=== PATIENT | male | born 1980 | race American Indian/Alaskan Native ===

== ENCOUNTER 2017-07-14 12:32 | Day surgery (SDC) | payer OTHER ==
[2017-07-14] MEDS ORDERED: NACL 0.9% 1000 ML 1,000 ML IV SCH (14:00)
--- NOTE | 2017-07-14 16:38 | Anesthesia Consultation ---
Anesthesia Consult and Med Hx Date of service: 07/14/17 - Airway Anesthetic Teeth Evaluation: Good ROM Head & Neck: Adequate Mental/Hyoid Distance: Adequate Mallampati Class: Class II Intubation Access Assessment: Good - Pulmonary Exam CTA: Yes - Cardiac Exam Cardiac Exam: No Murmur - Pre-Operative Health Status ASA Pre-Surgery Classification: ASA2 Proposed Anesthetic Plan: MAC - Additional Comments Anesthesia Medical History Comments: Crohns disease
--- NOTE | 2017-07-14 16:39 | Anesthesia Day of Surgery ---
Anesthesia Day of Surgery - Day of Surgery Patient Examined: Yes Patient H&P Reviewed: Yes Patient is NPO: Yes
[2017-07-14] MEDS ORDERED: DIPRIVAN 10 MG/ML IV ONE ×2 (17:14)
[2017-07-14 18:14] VITALS: BP 114/71
--- NOTE | 2017-07-14 20:54 | Operative Report ---
Operative Report Operative Report: Date of procedure: 07/14/2017 Procedure: Colonoscopy with Biopsies. Attending physician: Jay Szymanski MD Escapement Maker: Jay Szymanski MD Indication: Patient is a 37 year-old male who presents for colonoscopy. He has a history of crohns disease and abdominal pain. A colonoscopy serves to evaluate patients symptoms. Consent: Informed consent was obtained after advising the patient regarding nature of this procedure, its indications, potential benefits as well as possible complications including but not limited to bleeding, perforation and adverse reaction to medication, infection as well as other cardiopulmonary complications. An informed written and verbal consent was then obtained after due opportunity was provided for questions and answers. Monitoring: Patient was monitored continuously with pulse oximetry and electrocardiographic recordings as well as blood pressure recordings. Vital signs remained stable throughout this procedure with no untoward events. Preoperative assessment: Patient was assessed immediately prior to this procedure for capacity to tolerate monitored anesthesia care and moderate sedation as well as general anesthesia. Patient's ASA classification is 1, Mallampati class is 2, Hyomental distance is 3. Instrument: [employer] videocolonoscope. [employer] video endoscope. Medications: Propofol given intravenously in divided doses. For details please refer to anesthesia records. Description of procedure: Patient was placed in the left lateral decubitus position after achieving sedation, a digital rectal examination was performed following which the colonoscope was introduced into the anal verge and advanced to the cecum / ileocolonic anastomosis. The colonoscope was subsequently withdrawn with careful inspection of all mucosal surfaces. Patient tolerated this procedure well and was subsequently taken to the recovery room. The following findings were noted. Findings: The entire colon appeared relatively normal. However up on entering into the terminal ileum, there was diffuse ulceration with severe changes. The examined segments the terminal ileum appeared very highly friable hyperemic and with multiple patchy areas of ulceration. It had the typical appearance of severe Crohns ileitis. Several biopsies were obtained from this area for histopathology. After obtaining biopsies from this area, the colonoscope was then withdrawn. The ascending colon appeared normal the transverse colon appeared normal the descending colon appeared normal the sigmoid colon appeared normal however biopsies were obtained from the sigmoid colon to rule out microscopic disease. The rectum appeared normal. On the retroflex view at the anal verge, patient had internal hemorrhoids. Impression: Severe ileitis involving the examined segments of the terminal ileum. Internal hemorrhoids Plan: Follow pathology report. Patient appears to have predominantly small bowel Crohns disease. Patient describes recurrent bouts of loose stools and abdominal pain. Because of the endoscopic severity of the terminal ileitis, will start patient on prednisone 40 mg daily for 4-7 days and then taper this by 5 mg every 3 days. Will also follow pathology report from the small bowel biopsies which may help direct additional therapeutic decisions. Patient also to start 6-mercaptopurine 50 mg daily. In addition, will start patient on ciprofloxacin 500 mg twice daily for 10 days and also Flagyl 500 mg 3 times a day for 10 days. Patient will be given medications prescriptions for pain control including tramadol 50 mg every 6 hours as needed and also hyoscyamine sulfate 0.125 mg sublingually 3 times a day as needed for intestinal cramps. Because of difficulty that patient has had with insomnia related to the severity of his Crohns disease, patient was prescribed some limited doses of Ambien to help with insomnia. Patient most likely will require additional biologic therapy which will be considered after reviewing the pathology report.
--- NOTE | 2017-07-14 20:55 | Discharge Summary ---
Short Stay Discharge Plan Activity: advance as tolerated Weight Bearing Status: Weight Bear as Tolerated Diet: regular Additional Instructions: Post Sedation D/C Instructions When you return home you may resume your regular diet unless otherwise directed. - Go directly home from the hospital and rest quietly. You may resume normal activities tomorrow. -Do NOT drink any alcohol or take nerve or sleeping drugs. They add to the effects of the medicine still present in your body. Follow up with: JACINTO MILLER MD [Primary Care Provider] - 7 Days
== END 2017-07-14 12:33 | disposition home or self-care (01) ==
LOC: GIO 12:32
PROVIDERS: ATTEND Internal Medicine Gastroenterology
DX: K50.90 Crohn's disease, unspecified, without complications (principal); K52.89 Other specified noninfective gastroenteritis and colitis; K64.8 Other hemorrhoids; K59.00 Constipation, unspecified; Z79.82 Long term (current) use of aspirin
CPT/HCPCS: 45380; 88305; J2704; J7030